=== PATIENT | female | born 1960 | race Caucasian/White ===

== ENCOUNTER 2020-05-06 21:48 | Emergency (ER) | payer BC, SELFPAY ==
--- NOTE | ~2020-05-06 | CT_ITS ---
EXAMINATION: CT BRAIN W/O DATE: 05/06/2020 22:16 INDICATION: Headache after fall. Laceration. TECHNIQUE: Computed tomography (CT) of the head was performed without intravenous contrast. The dose- length product was 529.67 mGy-cm. The mA was adjusted according to patient size. Iterative reconstruc tion technique was employed. COMPARISON: No prior studies for comparison. FINDINGS: Normal brain parenchymal volume for age. Normal bennett-white differentiation. No acute intrac ranial hemorrhage, infarction, mass or mass effect. No ventriculomegaly or midline shift. Midline sagittal images demonstrate a normal corpus callosum, c raniovertebral junction and sella turcica. Basilar cisterns are patent. There is a right posterior pa rietal scalp hematoma. No underlying depressed skull fracture. Paranasal sinuses and mastoids are pneumatized. No depressed skull fractures. IMPRESSION: 1. No acute intracranial abnormality. Reviewed, dictated and finalized at location A.
--- NOTE | ~2020-05-06 | CT_ITS ---
EXAMINATION: CT cervical spine wo con DATE: 05/06/2020 22:17 INDICATION: Neck pain after fall. Alcohol intoxication. TECHNIQUE: Computed tomography (CT) of the cervical spine was performed without intravenous contrast. The dose-length product was 119 mGy-cm. Automated exposure control and iterative reconstruction tech nique were employed. COMPARISON: None FINDINGS: Normal cervical alignment. Vertebral body and disc heights are preserved. No significant sp inal stenosis. Odontoid process within normal limits. Lung apices normal. No paraspinal soft tissue a bnormality. No acute fracture or traumatic malalignment. IMPRESSION: 1. No acute fracture. Reviewed, dictated and finalized at location A. IMPRESSION: 1. No acute fracture.
[2020-05-06 22:19] VITALS: BP 163/105; PULSE 71; RESP 18; TEMP 36.7; O2SAT 100
--- NOTE | 2020-05-06 22:27 | ED.HEATRA ---
HPI - Head Injury General Chief complaint: Head Injury Stated complaint: hit head off of ground Time Seen by Provider: 05/06/20 22:00 Source: patient and family Mode of arrival: ambulatory Limitations: no limitations History of Present Illness HPI Narrative: 59-year-old woman comes in today complaining of a head injury and laceration to her occiput that happened just prior to arrival. Patient states that she has been drinking. She states she lost her balance and fell backwards. She denies loss of consciousness and has had no nausea, vomiting, changes in her vision, difficulty walking or amnesia. She denies history of seizures or prior significant head injuries. Complaint: head injury and head pain Onset (ago): minute(s) (20) Mechanism of Injury: fall Place: outdoors Loss of Consciousness: no Location of injury: occipital Severity: moderate Quality: sharp Radiation: none Other Injuries: none Context: recent alcohol use Related Data Allergies Allergy/AdvReac Type Severity Reaction Status Date / Time No Known Allergies Allergy Unknown Unverified 05/25/06 12:17 NKDA Allergy Mild Uncoded 05/24/06 12:01 Review of Systems Constitutional: Constitutional: Denies chills and Denies fever(s) Eyes: Eyes: Denies change in vision and Denies photophobia ENT: Denies dysphagia, Denies nasal congestion and Denies sore throat Cardiovascular: Cardiovascular: Denies chest pain and Denies radiating jaw, neck or arm pain Respiratory: Respiratory: Denies cough, Denies dyspnea and Denies wheezing Gastrointestinal: Gastrointestinal: Denies abdominal pain, Denies nausea and Denies vomiting Genitourinary: Genitourinary: Denies nocturia and Denies dysuria Musculoskeletal: Musculoskeletal: Denies arthralgias and Denies joint swelling Integumentary/Breasts: Skin/Breast: Denies pruritus, Denies erythema and Denies rash Neurologic: Denies vertigo, Denies dizziness and Denies syncope Hematologic/Lymphatic: Hematologic/Lymphatic: Denies easy bleeding and Denies easy bruising Allergic/Immunologic: Allergic/Immunologic: Denies lip swelling and Denies wheezing PMFSH Surgical History Surgical History History of Hx of tonsillectomy S/P cholecystectomy Family History Family History (Updated 08/31/10 @ 13:40 by DOCTOR UNKNOWN) Other Diabetes mellitus Family history of alcoholism Family history of arthritis Family history of mental disorder Hypertension Social History Social History Smoking status: Current every day smoker Alcohol intake: current Gender identity (if verbalized by the patient): Female Sexual Orientation (if Verbalized by the Patient): Straight or Heterosexual Exam Const: General: healthy appearing, no acute distress and alert Orientation/consciousness: patient oriented x3 Limitations: no limitations HENMT: Head: normal to inspection Ears: external ears normal Face and sinus: normal facial exam Mouth: Yes moist mucous membranes Throat: posterior oropharynx normal and uvula midline Eyes: Conjunctivae: conjunctivae normal Pupils: Equal, round and reactive pupils present EOM: EOMs intact bilaterally Resp: Effort & Inspection: normal respiratory effort and not labored Auscultation: clear to auscultation bilaterally, no rales, no rhonchi and no wheezes Cardio: Rate: regular rate Rhythm: regular rhythm Heart sounds: no murmurs GI: Inspection: non-distended GI Palp: Yes Soft to palpation, No Tenderness to palpation present (GI) and No Guarding due to palpation present (GI) Back/Spine/Pelvis: Other: Denies tenderness palpation of the neck. Skin: General skin exam: normal color Rashes: no rashes Other: Bleeding scalp wound on the occiput. Neuro: General: patient oriented x3, moves all extremities and no focal motor deficits Cranial nerves: Yes CN's II-XII intact bilaterally Speech: normal speech Gait exam (Neuro): No
[2020-05-06 22:35] LABS: Basophils Absolute Auto 0.04 K/mm3 (0.00-0.10); Basophils Percent Auto 0.9 % (0.0-1.0); Eosinophils Percent Auto 2.3 % (1.0-6.0); Hematocrit 31.3 % (35.0-49.0); Immature Granulocyte Absolute 0.05 K/mm3 (0.00-0.00); Immature Granulocyte Percent A 1.2 % (0.0-0.0); Lymphocytes Absolute Auto 1.32 K/mm3 (1.10-4.50); Lymphocytes Percent Auto 30.6 % (18.0-42.0); Mean Corpuscular HGB Conc 31.9 g/dL (32.0-36.0); Mean Corpuscular Hemoglobin 25.4 pg (27.0-31.0); Mean Corpuscular Volume 79.4 fL (78.0-102.0); Monocytes Absolute Auto 0.36 K/mm3 (0.10-0.90); Monocytes Percent Auto 8.3 % (2.0-11.0); Neutrophils Absolute Auto 2.5 K/mm3 (1.7-7.2); Neutrophils Percent Auto 56.7 % (50.0-70.0); Platelet Count Result 278 K/mm3 (150-420); Red Blood Count 3.94 M/mm3 (4.20-5.40); Red Cell Distribution Width 18.2 % (11.6-14.4); White Blood Count 4.3 K/mm3 (4.8-10.8)
[2020-05-06 22:52] LABS: Partial Thromboplastin Time 29.2 SEC (22.3-31.6)
[2020-05-06 22:53] LABS: Alanine Aminotransferase 27 U/L (14-59); Albumin Level 3.7 g/dL (3.4-5.0); Alkaline Phosphatase 72 U/L (46-116); Aspartate Amino Transferase 27 U/L (15-37); Bilirubin,Total 0.3 mg/dL (0.00-1.00); Blood Urea Nitrogen 7 mg/dL (7-18); Calcium 7.8 mg/dL (8.5-10.1); Carbon Dioxide 26 mmol/L (21-32); Chloride 91 mmol/L (98-108); Estimated CRCL calculation 64 ml/min; Estimated Glomerular Filt Rate > 60; Glucose 95 mg/dL (70-99); Osmolality Calculated 258 mOsm/kg (285-295); Sodium 125 mmol/L (136-145); Total Protein 6.9 g/dL (6.4-8.2)
[2020-05-06] MEDS: TETANUS,DIPHTHERIA,AC PERTUSSIS ADULT 0.5 ML (ADACEL) IM (22:53)
[2020-05-06] MEDS: LIDO 1%/EPINEPHRINE 1:100,000 20 ML VIAL (23:23)
[2020-05-06 23:40] VITALS: BP 142/88; PULSE 90; RESP 20; TEMP 36.7; O2SAT 98
== END 2020-05-06 23:53 | disposition home or self-care (01) ==
PROVIDERS: Emergency Provider Emergency Medicine
DX: S01.01XA Laceration without foreign body of scalp, initial encounter (principal); W19.XXXA Unspecified fall, initial encounter
CPT/HCPCS: 12001; 36415; 70450; 72125; 80053; 85025; 85610; 85730; 90471; 90715; 99282; 99284

== ENCOUNTER 2020-09-29 09:39 | Outpatient (CLI) | payer BC, SELFPAY ==
[2020-09-29 10:19] LABS: SARS-CoV-2 Ag Positive (Negative)
== END 2020-09-29 09:40 | disposition home or self-care (01) ==
LOC: CHSLAB 09:42
PROVIDERS: PCP Internal Medicine; Visit Provider Internal Medicine
DX: U07.1 COVID-19 (principal)
CPT/HCPCS: 87426

== ENCOUNTER 2024-06-22 08:38 | Outpatient (CLI) | payer BC, SELFPAY ==
--- NOTE | ~2024-06-22 | XR_ITS ---
EXAMINATION: XR shoulder RT min 2V DATE: 06/22/2024 09:18 INDICATION: Polyarthritis with right shoulder pain TECHNIQUE: AP internally and externally rotated, AP oblique externally rotated and transscapular Y vi ews of the right shoulder were obtained. COMPARISON: None FINDINGS: Normal alignment. No fracture. Mild right glenohumeral and acromioclavicular osteoarthritis. Soft ti ssues are unremarkable. Visualized portion of the right lung are clear. IMPRESSION: Mild right glenohumeral and acromioclavicular osteoarthritis. Reviewed, dictated and finalized at location B.
--- NOTE | ~2024-06-22 | XR_ITS ---
EXAMINATION: XR hand LT min 3V, XR wrist RT min 3V, XR wrist LT min 3V, XR hand RT min 3V DATE: 06/22/2024 09:17 INDICATION: Bilateral hand and wrist pain. TECHNIQUE: 1. Posteroanterior, oblique, and lateral views of the left wrist were obtained. 2. Dorsal palmar, oblique and lateral views of the left hand were obtained. 3. Posteroanterior, oblique, and lateral views of the right wrist were obtained. 4. Dorsal palmar, oblique and lateral views of the right hand were obtained. COMPARISON: None. FINDINGS: Left hand and wrist: 1-2 mm ulnar positive variance with cystic change at the ulnar side of the lunate suggesting ulnocarp al impaction. Alignment of the left hand and wrist is otherwise normal. No fracture identified. Poly articular osteoarthritis, moderate severity at the first and third metacarpophalangeal and first inte rphalangeal joints and mild at the wrist, triscaphe, first carpometacarpal and many of the remaining metacarpophalangeal and interphalangeal joints. Mild likely degenerative subarticular cystlike change at the head of the first metacarpal. No erosions to suggest inflammatory arthritis. No focal soft ti ssue swelling. Right hand and wrist: 2 mm ulnar positive variance with similar cystic change at the ulnar side of the lunate consistent wi th ulnocarpal impaction. Alignment of the right hand and wrist is otherwise normal. No fracture. Rela tively symmetric pattern of polyarticular osteoarthritis at the right hand, moderate severity at the first and third metacarpophalangeal and first interphalangeal joints as well as at the second, third and fifth distal interphalangeal joints. Mild osteoarthritis at the wrist, triscaphe, first carpometa carpal and menisci and remaining metacarpophalangeal and interphalangeal joints. Similar subarticular likely degenerative cystic change at the head of the first metacarpal. No erosions to suggest inflam matory arthritis. IMPRESSION: 1. Symmetric mild ulnar positive variance with cystic change at the ulnar aspect of the lunate on bot h the left and right consistent with ulnocarpal impaction. 2. Relative symmetric pattern of mild to moderate polyarticular osteoarthritis. Reviewed, dictated and finalized at location B. IMPRESSION: 1. Symmetric mild ulnar positive variance with cystic change at the ulnar aspec t of the lunate on both the left and right consistent with ulnocarpal impaction . 2. Relative symmetric pattern of mild to moderate polyarticular osteoarthritis. IMPRESSION: 1. Symmetric mild ulnar positive variance with cystic change at the ulnar aspec t of the lunate on both the left and right consistent with ulnocarpal impaction . 2. Relative symmetric pattern of mild to moderate polyarticular osteoarthritis. IMPRESSION: 1. Symmetric mild ulnar positive variance with cystic change at the ulnar aspec t of the lunate on both the left and right consistent with ulnocarpal impaction . 2. Relative symmetric pattern of mild to moderate polyarticular osteoarthritis.
--- NOTE | ~2024-06-22 | XR_ITS ---
EXAMINATION: XR knee RT 3V DATE: 06/22/2024 09:18 INDICATION: Right knee pain. Polyarthritis. TECHNIQUE: AP, lateral and sunrise views of the right knee were obtained COMPARISON: None. FINDINGS: Diffuse osteopenia. Alignment is normal. No fracture. Mild joint space narrowing in the medial and p atellofemoral compartments. There are tiny marginal ossified the medial lateral compartment. Moderate marginal osteophytes at the patellofemoral compartment with subarticular cystic changes and small ce ntral subchondral osteophytes along the lateral trochlea. Small right knee joint effusion. Soft tissu es are unremarkable. IMPRESSION: 1. Mild patellofemoral compartment predominant tricompartmental osteoarthritis at the right knee with subchondral changes suggesting high-grade chondromalacia along the lateral trochlea. Reviewed, dictated and finalized at location B.
--- NOTE | ~2024-06-22 | XR_ITS ---
Left Knee Technique: AP, lateral, and sunrise views were obtained. Clinical History: Arthritis Findings: No fracture or dislocation is seen. Osseous alignment is anatomic. There is mild to moderat e degenerative spine, worst at the medial joint line.. Soft tissues are unremarkable. No joint effusi on is seen. Impression: Degenerative spurring, as above. Reviewed, dictated and finalized at location M. Impression: Degenerative spurring, as above.
== END 2024-06-22 08:39 | disposition home or self-care (01) ==
LOC: CHSIMG 08:43
PROVIDERS: PCP Internal Medicine; Visit Provider Internal Medicine
DX: M13.0 Polyarthritis, unspecified (principal); M94.262 Chondromalacia, left knee; M94.261 Chondromalacia, right knee
CPT/HCPCS: 73030; 73110; 73130; 73562

== ENCOUNTER 2024-06-25 12:52 | Outpatient (CLI) | payer BC, SELFPAY ==
--- NOTE | ~2024-06-25 | XR_ITS ---
XR chest 2V Ordering provider: Lencho Paige MD History: 63 years Female with . Anemia hx of smoking . Comparison: None. FINDINGS: MEDIASTINUM: The cardiac silhouette is not enlarged. LUNGS: No infiltrates, effusions or pneumothorax. OTHER: No free air under the diaphragm. IMPRESSION: No acute cardiopulmonary pathology. Reviewed, dictated and finalized at location A.
[2024-06-25 13:34] LABS: Basophils Absolute Auto 0.04 K/mm3 (0.00-0.10); Basophils Percent Auto 0.8 % (0.0-1.0); Eosinophils Absolute Auto 0.04 K/mm3 (0.02-0.50); Eosinophils Percent Auto 0.8 % (1.0-6.0); Hematocrit 24.3 % (35.0-49.0); Immature Granulocyte Absolute 0.01 K/mm3 (0.00-0.00); Immature Granulocyte Percent A 0.2 % (0.0-0.0); Immature Reticulocyte Fraction 14.2 % (2.0-16.52); Lymphocytes Absolute Auto 0.92 K/mm3 (1.10-4.50); Lymphocytes Percent Auto 18.7 % (18.0-42.0); Mean Corpuscular HGB Conc 28.4 g/dL (32-36); Mean Corpuscular Hemoglobin 19.5 pg (27.0-31.0); Mean Corpuscular Volume 68.6 fL (78.0-102.0); Mean Platelet Volume 8.2 fl (9.2-11.8); Monocytes Absolute Auto 0.56 K/mm3 (0.10-0.90); Monocytes Percent Auto 11.4 % (2.0-11.0); Neutrophils Absolute Auto 3.34 K/mm3 (1.70-7.20); Neutrophils Percent Auto 68.1 % (50.0-70.0); Platelet Count Result 253 K/mm3 (150-420); Red Blood Count 3.54 M/mm3 (4.20-5.40); Red Cell Distribution Width 21.2 % (11.6-14.4); Reticulocyte Hemoglobin Conten 20.4 pg (28.0-35.0); Reticulocyte Percent 1.35 % (0.50-1.50); Reticulocytes Absolute 0.05 M/mm3 (0.02-0.10); White Blood Count 4.9 K/mm3 (4.8-10.8)
[2024-06-25 13:45] LABS: Hemoglobin 6.9 g/dL (12.0-15.0)
[2024-06-26 14:01] LABS: Ferritin 4 ng/mL (8-252); Iron 8 ug/dL (50-170); Percent Iron Saturation 2 % (12-57)
== END 2024-06-25 12:53 | disposition home or self-care (01) ==
PROVIDERS: PCP Internal Medicine; Visit Provider Internal Medicine
DX: D64.9 Anemia, unspecified (principal); Z87.891 Personal history of nicotine dependence
CPT/HCPCS: 36415; 71046; 82728; 83540; 83550; 85025; 85046

== ENCOUNTER 2024-06-28 11:09 | Outpatient (CLI) | payer BC, SELFPAY ==
[2024-06-28 12:54] LABS: Calcium 8.3 mg/dL (8.5-10.1); Folic Acid 18.7 ng/mL (8.6->20); Magnesium 1.9 mg/dL (1.8-2.4); Phosphorus 4.7 mg/dL (2.6-4.7); Vitamin B12 240 pg/mL (193-986)
[2024-06-29 17:53] LABS: Parathyroid Intact 88 pg/mL (16-77)
[2024-06-30 05:33] LABS: Vitamin D 25 Hydroxy 10 ng/mL (30-100)
[2024-07-01 11:39] LABS: Vitamin B1 9 nmol/L (8-30)
[2024-07-02 11:29] LABS: Vitamin A 29 mcg/dL (38-98)
[2024-07-03 09:59] LABS: Methylmalonic Acid 192 nmol/L (69-390)
[2024-07-03 12:43] LABS: Zinc 63 mcg/dL (60-130)
== END 2024-06-28 11:10 | disposition home or self-care (01) ==
LOC: CHSLAB 11:13
PROVIDERS: PCP Internal Medicine; Visit Provider Nurse Practitioner Family
DX: K95.89 Other complications of other bariatric procedure (principal); D50.8 Other iron deficiency anemias; Z71.3 Dietary counseling and surveillance; R79.89 Other specified abnormal findings of blood chemistry
CPT/HCPCS: 36415; 82306; 82310; 82525; 82607; 82746; 83735; 83921; 83970; 84100; 84425; 84590; 84630

== ENCOUNTER 2024-07-09 08:22 | Outpatient (CLI) | payer BC, SELFPAY ==
[2024-07-09 08:50] VITALS: BP 162/88; PULSE 77; RESP 16; TEMP 36.9; O2SAT 99; BMI 22.1
--- NOTE | 2024-07-09 08:50 | PC.NURSE ---
Patient here for venofer infusion. Patient tolerated IV start well. Sitting up in chair resting, provided with call light.
[2024-07-09] MEDS: IRON SUCROSE COMPLEX 200 MG, IRON SUCROSE COMPLEX 100 MG in SODIUM CHLORIDE 0.9% IV 250 ML 250 MG IVPB (09:01)
--- NOTE | 2024-07-09 10:10 | PC.NURSE ---
Patient tolerated infusion well. IV sited removed, tip intact. Dressing applied to site. Patient discharging back home. Next appointment for venofer set up for 07-12-24 at 0830. Patient denies any questions at discharge, provided with information about venofer with discharge instructions.
== END 2024-07-09 08:23 | disposition home or self-care (01) ==
PROVIDERS: PCP Internal Medicine; Visit Provider Nurse Practitioner Family
DX: D50.8 Other iron deficiency anemias (principal)
CPT/HCPCS: 96365; J1756; J7050

== ENCOUNTER 2024-07-12 08:22 | Outpatient (CLI) | payer BC, SELFPAY ==
[2024-07-12 09:30] VITALS: BMI 20.6
[2024-07-12 09:32] VITALS: BP 142/74; PULSE 80; RESP 18; TEMP 36.5; O2SAT 98
[2024-07-12] MEDS: IRON SUCROSE COMPLEX 200 MG, IRON SUCROSE COMPLEX 100 MG in SODIUM CHLORIDE 0.9% IV 250 ML 125 MG IVPB (09:36)
--- NOTE | 2024-07-12 09:54 | PC.NURSE ---
pharm claims iron can be ran over a hour. patient requests it to run over a hour. tolerated this earilier in week. will cont to monitor.
== END 2024-07-12 11:55 | disposition home or self-care (01) ==
PROVIDERS: PCP Internal Medicine; Visit Provider Nurse Practitioner Family
DX: D50.8 Other iron deficiency anemias (principal)
CPT/HCPCS: 96365; J1756; J7050

== ENCOUNTER 2024-07-25 02:18 | Day surgery (SDC) | payer BC, SELFPAY ==
[2024-07-09 12:56] VITALS: BMI 22.4
[2024-07-25 13:45] VITALS: BP 175/79; PULSE 85; RESP 18; TEMP 36.4; O2SAT 100; BMI 20.9
[2024-07-25] MEDS: LACTATED RINGERS 1,000 ML 150 ML IV CONT (14:02)
--- NOTE | 2024-07-25 14:09 | WPDANESEPPF ---
Anes - Initial Pre Proc Eval Procedure: Operation Date: 07/25/24 15:00 Proposed Procedures p Esophagogastroduodenoscopy & Colonoscopy - Schuyler Stokes MD Date/Time: 07/25/24 14:09 Surgeon: Schuyler Stokes MD Pre Op Diagnosis: anemia Patient Data Age: 63 Gender: F Height: 1.6 m Weight: 53.6 kg Last Vital Signs Temp 97.6 F 07/25/24 13:45 Pulse 85 07/25/24 13:45 Resp 18 07/25/24 13:45 BP 175/79 H 07/25/24 13:45 Pulse Ox 100 07/25/24 13:45 O2 Del Method Room Air 07/25/24 13:45 Allergies Allergy/AdvReac Type Severity Reaction Status Date / Time No Known Allergies Allergy Unknown Verified 07/25/24 13:52 Home Medications Medication Instructions Recorded Confirmed Type celecoxib 100 mg capsule 100 mg PO BID PRN pain 07/09/24 07/25/24 History cholecalciferol (vitamin D3) 1,250 50,000 unit PO WEEKLY 07/09/24 07/25/24 History mcg (50,000 unit) tablet mecobalamin (vitamin B12) 5,000 5,000 mcg PO DAILY 07/09/24 07/25/24 History mcg chewable tablet multivitamin with minerals 1 tablet PO DAILY 07/09/24 07/25/24 History pediatric multivit no.17-ferrous 1 tablet PO DAILY 07/09/24 07/25/24 History fumarate 15 mg iron chewable tablet vitamin D3-vitamin K2 1 tab-cap PO DAILY 07/09/24 07/25/24 History Patient hx anesthesia problems: none Family hx anesthesia problems: none Results Review: All pre-operative results and documents have been reviewed as part of the pre-operative evaluation. [facility] Past Medical History Medical History (Updated 06/20/24 @ 15:50 by Devon Vanessa MD) Osteoarthritis (arthritis due to wear and tear of joints) Surgical History Surgical History History of Hx of tonsillectomy S/P cholecystectomy Family History Family History (Updated 08/31/10 @ 13:40 by DOCTOR UNKNOWN) Other Diabetes mellitus Family history of alcoholism Family history of arthritis Family history of mental disorder Hypertension Social History Social History Smoking packs per day: 1 Smoking cigarettes per day: 20.0 Years smoked: 10 Smoking pack-years: 10.00 Smoking status: Current every day smoker Tobacco type: cigarettes Alcohol intake: never Substance use: never Substance use type: does not use Living arrangements: with family Gender identity (if verbalized by the patient): Female Sexual Orientation (if Verbalized by the Patient): Straight or Heterosexual Spiritual care concerns: No Anes - Eval Final PreProcedure Day of Procedure 07/25/24 14:09 Patient weight: normal Heart: regular rate and rhythm Lungs: clear to auscultation Airway: Mallampati scale class II Neurological: alert and oriented Last oral intake: >/= 8 hours ASA classification: II Emergent: no Anesthetic plan: proceed Anesthesia type and monitoring: general and standard monitoring Results Review: All pre-operative results and documents have been reviewed as part of the pre-operative evaluation. Informed Consent: The patient's anesthetic plan and its attendant risks and benefits were discussed with the patient/family/POA. Questions were solicited and answers provided to the satisfaction of the patient/family/POA.
--- NOTE | 2024-07-25 14:16 | PM.HPGS ---
History of Present Illness History of Present Illness Consent: Risks, benefits, and alternatives have been discussed and questions answered. Patient agrees to proceed with procedure. Chief complaint: anemia Narrative: Magdalena Banegas is a 63 year old female with anemia but denies overt gib, never had egd, last colonoscopy years ago Review of Systems Review of Systems: All systems reviewed & are unremarkable except as noted in HPI and below PMFSH Past Medical History Medical History (Updated 07/25/24 @ 14:17 by Schuyler Stokes MD) Anemia Osteoarthritis (arthritis due to wear and tear of joints) Surgical History Surgical History History of Hx of tonsillectomy S/P cholecystectomy Family History Family History (Updated 08/31/10 @ 13:40 by DOCTOR UNKNOWN) Other Diabetes mellitus Family history of alcoholism Family history of arthritis Family history of mental disorder Hypertension Social History Social History Smoking packs per day: 1 Smoking cigarettes per day: 20.0 Years smoked: 10 Smoking pack-years: 10.00 Smoking status: Current every day smoker Tobacco type: cigarettes Alcohol intake: never Substance use: never Substance use type: does not use Living arrangements: with family Gender identity (if verbalized by the patient): Female Sexual Orientation (if Verbalized by the Patient): Straight or Heterosexual Spiritual care concerns: No Meds Home Medications and Allergies Home Medications Medication Instructions Recorded Confirmed Type celecoxib 100 mg capsule 100 mg PO BID PRN pain 07/09/24 07/25/24 History cholecalciferol (vitamin D3) 1,250 50,000 unit PO WEEKLY 07/09/24 07/25/24 History mcg (50,000 unit) tablet mecobalamin (vitamin B12) 5,000 5,000 mcg PO DAILY 07/09/24 07/25/24 History mcg chewable tablet multivitamin with minerals 1 tablet PO DAILY 07/09/24 07/25/24 History pediatric multivit no.17-ferrous 1 tablet PO DAILY 07/09/24 07/25/24 History fumarate 15 mg iron chewable tablet vitamin D3-vitamin K2 1 tab-cap PO DAILY 07/09/24 07/25/24 History Allergies Allergy/AdvReac Type Severity Reaction Status Date / Time No Known Allergies Allergy Unknown Verified 07/25/24 13:52 Vital Signs Vital Signs - 24 hr 10/16/24 13:45 Temperature 97.6 F Pulse Rate 85 Respiratory Rate 18 Blood Pressure 175/79 H Pulse Oximetry 100 Oxygen Delivery Room Air Exam Const: General: comfortable and no acute distress HENMT: Face/Nose/Sinus: Normal nares present Eyes: General: appearance normal, both eyes and all related structures Neck: Neck: no JVD Resp: Auscultation: clear to auscultation bilaterally Cardio: Rate: regular rate Rhythm: regular rhythm GI: Inspection: non-distended GI Palp: Yes Soft to palpation Skin: General skin exam: normal color Neuro: General: gait normal Speech: normal speech Extrem: General: normal to inspection Psych: Mental Status: mental status grossly normal Assessment and Plan Assessment and plan (1) Anemia: Code(s): D64.9 - Anemia, unspecified Status: Acute Assessment and Plan: egd and colonoscopy
--- NOTE | 2024-07-25 14:44 | SUR.OPER ---
EGD START 1424, END 1426 COLONOSCOPY START 1430, END 1444
[2024-07-25 14:46] VITALS: BP 146/78; PULSE 71; RESP 12; O2SAT 99
[2024-07-25 14:56] VITALS: BP 187/80; PULSE 77; RESP 17; O2SAT 99
[2024-07-25 15:06] VITALS: BP 194/97; PULSE 77; RESP 14; O2SAT 99
--- NOTE | 2024-07-25 15:22 | SUR.PHASEII ---
Pt blood pressure 194/97 in recovery. Pt states she has not on any antihypertensives and states she has not taken them since her gastric surgery. Dr. Cherry anesthesiologist notified of blood pressure readings and no new orders received states ok to discharge pt. I encouraged pt to check blood pressure daily at home and to report readings to primary care physician.
== END 2024-07-25 15:22 | disposition home or self-care (01) ==
PROVIDERS: PCP Internal Medicine; Referring Provider Nurse Practitioner Family; Visit Provider Internal Medicine Gastroenterology
PROC: 0DJ08ZZ Inspection of Upper Intestinal Tract, Via Natural or Artificial Opening Endoscopic (ICD-10-PCS; CPT 43235; principal; 2024-07-25 15:00)
DX: Z12.11 Encounter for screening for malignant neoplasm of colon (principal); K64.8 Other hemorrhoids; K57.30 Diverticulosis of large intestine without perforation or abscess without bleeding; D64.9 Anemia, unspecified; F17.210 Nicotine dependence, cigarettes, uncomplicated; Z98.890 Other specified postprocedural states; Z90.49 Acquired absence of other specified parts of digestive tract; Z98.84 Bariatric surgery status
CPT/HCPCS: 43235; 45378; J2003; J2704; J7120

== ENCOUNTER 2024-07-26 07:41 | Outpatient (CLI) | payer BC, SELFPAY ==
[2024-07-26 07:57] LABS: Hematocrit 32.9 % (35.0-49.0); Hemoglobin 9.7 g/dL (12.0-15.0); Mean Corpuscular HGB Conc 29.5 g/dL (32-36); Mean Corpuscular Hemoglobin 23.5 pg (27.0-31.0); Mean Corpuscular Volume 79.9 fL (78.0-102.0); Mean Platelet Volume 7.7 fl (9.2-11.8); Platelet Count Result 249 K/mm3 (150-420); Red Blood Count 4.12 M/mm3 (4.20-5.40); Red Cell Distribution Width 29.8 % (11.6-14.4); White Blood Count 3.9 K/mm3 (4.8-10.8)
[2024-07-26 08:47] LABS: Band Neutrophils Percent 0 % (0-6); Basophils Absolute Manual 0.03 K/mm3 (0-0.1); Basophils Percent Manual 1 % (0-1); Eosinophils Absolute Manual 0.03 K/mm3 (0.02-0.50); Eosinophils Percent Manual 1 % (1-6); Lymphocytes Absolute Manual 0.62 K/mm3 (1.1-4.5); Lymphocytes Percent Manual 16 % (18-44); Monocytes Absolute Manual 0.35 K/mm3 (0.1-0.90); Monocytes Percent Manual 9 % (3-9); Neutrophils Absolute Manual 2.84 K/mm3 (1.7-7.2); Neutrophils Percent Manual 73 % (46-73); Platelet Estimate Adequate (Adequate); Total Cells Counted 100
[2024-07-26 09:08] LABS: Ferritin 75 ng/mL (8-252); Iron 80 ug/dL (50-170); Percent Iron Saturation 22 % (12-57)
== END 2024-07-26 07:42 | disposition home or self-care (01) ==
LOC: CHSLAB 07:45
PROVIDERS: PCP Internal Medicine; Visit Provider Nurse Practitioner Family
DX: D50.9 Iron deficiency anemia, unspecified (principal)
CPT/HCPCS: 36415; 82728; 83540; 83550; 85025

== ENCOUNTER 2024-08-16 12:54 | Outpatient (CLI) | payer BC, SELFPAY ==
--- NOTE | 2024-08-16 12:59 | ECHO_ITS ---
Patient Info Name: Magdalena Banegas Age: 63 years : 1960 Gender: Female Ht: 64 in Wt: 125 lbs BSA: 1.60 m2 HR: 76 bpm BP: 170 / 70 mmHg Heart Rhythm: Sinus Rhythm Technical Quality: Good Exam Date: 08/16/2024 2:09 PM Exam Location: Echo Lab Patient Status: Outpatient Admit Date: 08/16/2024 Staff Ordering Physician: Lencho Paige MD Central Sterilization Technician: Maria C Ojeda RDCS Attending Provider: Lencho Paige MD Exam Type: CA echo doppler color flow Study Info Indications - HTN, IRON DEFICIENCY Complete two-dimensional, color flow and Doppler transthoracic echocardiogram is performed. Summary 1. Complete two-dimensional, color flow and Doppler transthoracic echocardiogram is performed. 2. Left ventricular chamber dimension is normal. 3. Left ventricular systolic function is normal, estimated at 60-65%. 4. The left ventricular diastolic function is grade I diastolic dysfunction. 5. E/e' 8 is minimally elevated. 6. Left atrial chamber dimension is mildly enlarged. 7. There is trace aortic valve regurgitation. 8. The mitral valve has moderately calcified annulus. 9. No pulmonary hypertension, estimated pulmonary arterial systolic pressure is 13 mmHg. Left Ventricle E/e' 8 is minimally elevated. Left ventricular chamber dimension is normal. Left ventricular systolic function is normal, estimated at 60-65%. The left ventricular diastolic function is grade I diastolic dysfunction. Right Ventricle Right ventricular systolic function is normal and with normal TAPSE 2.4 cm. Right ventricular chamber dimension is normal. Left Atria Left atrial chamber dimension is mildly enlarged. Right Atria Right atrial chamber dimension is normal. Aortic Valve The aortic valve is trileaflet. There is no aortic valve stenosis. There is trace aortic valve regurgitation. Pulmonic Valve There is no pulmonic regurgitation. Mitral Valve The mitral valve has moderately calcified annulus. There is no mitral valve stenosis. There is no mitral valve regurgitation. Tricuspid Valve There is no tricuspid valve regurgitation. No pulmonary hypertension, estimated pulmonary arterial systolic pressure is 13 mmHg. Pericardium/Pleural There is no pericardial effusion. Inferior Vena Cava Normal inferior vena cava with >50% collapse upon inspiration consistent with normal right atrial pressure, 5 mmHg. Aorta The aortic root size at the sinus of Valsalva is normal. Left Ventricular Outflow Tract Name Value Normal LVOT 2D LVOT Diameter 1.7 cm LVOT Doppler LVOT Peak Velocity 100 cm/s LVOT Peak Gradient 4 mmHg LVOT Mean Gradient 2 mmHg LVOT VTI 22 cm LVOT VTI/AV VTI Ratio 0.8 LVOT Stroke Volume 52 ml Mitral Valve Name Value Normal MV Doppler MV Decel Campbell 269 cm/s2 MV PHT 64 ms MV Area (PHT) 3.4 cm2 4.0-5.0 MV Diastolic Function MV E Peak Velocity 59 cm/s MV A Peak Velocity 117 cm/s MV E/A 0.5 MV Decel Time 221 ms Tricuspid Valve Name Value Normal TV Regurgitation Doppler TR Peak Velocity 146 cm/s TR Peak Gradient 8 mmHg Estimated PAP/RSVP RA Pressure 5 mmHg <=5 PA Systolic Pressure 13 mmHg <36 RV Systolic Pressure 13 mmHg <36 Aortic Valve Name Value Normal AV Doppler AV Peak Velocity 139 cm/s AV Peak Gradient 8 mmHg AV Mean Gradient 5 mmHg AV VTI 29 cm AV Area (Cont Eq VTI) 1.8 cm2 >=3.0 AV Area (Cont Eq Uday) 1.7 cm2 AV V1/V2 Ratio 0.72 AV Regurgitation 2D LVOT Area 2.3 cm2 Ventricles Name Value Normal LV Dimensions 2D/MM IVS Diastolic Thickness (2D) 1.0 cm 0.6-1.0 LVID Diastole (2D) 4.8 cm 3.8-5.2 LVIW Diastolic Thickness (2D) 1.0 cm 0.6-0.9 LVID Systole (2D) 3.1 cm 2.2-3.5 LVOT Diameter 1.7 cm LV Mass (2D Cubed) 164.90 g 67.00-162.00 LV Mass Index (2D Cubed) 103 g/m2 43-95 Relative Wall Thickness (2D) 0.42 LV Fractional Shortening/Ejection Fraction 2D/MM LV Fractional Shortening (2D) 35 % 27-45 LV EF (2D Teicholz) 64 % 54-74 LV Diastolic Volume (4C MOD) 88 ml LV EF (4C MOD) 64 % LV Diastolic Volume (2C MOD) 126 ml LV EF (2C MOD) 65 % LV Diastolic Volume (BP MOD) 109 ml 46-106 LV Diastolic Volume Index (BP MOD) 68 ml/m2 29-61 LV Systolic Volume (BP MOD) 41 ml 14-42 LV Systolic Volume Index (BP MOD) 25 ml/m2 8-24 LV EF (BP MOD) 62 % 54-74 LV Diastolic Length (4C) 8.2 cm LV Systolic Length (4C) 6.0 cm LV Stroke Volume (4C MOD) 56 ml Atria Name Value Normal LA Dimensions LA Volume (4C A-L) 49 ml LA Volume (BP A-L) 63 ml RA Dimensions RA Area (4C) 12.7 cm2 <=18.0 Report Signatures
== END 2024-08-16 12:55 | disposition home or self-care (01) ==
LOC: CHSIMG 12:55
PROVIDERS: PCP Internal Medicine; Visit Provider Internal Medicine
DX: I10 Essential (primary) hypertension (principal); D50.9 Iron deficiency anemia, unspecified; I51.7 Cardiomegaly
CPT/HCPCS: 93306

== ENCOUNTER 2024-08-27 08:08 | Outpatient (CLI) | payer BC, SELFPAY ==
[2024-08-27 08:21] LABS: Hemoglobin 11.8 g/dL (12.0-15.0); Mean Corpuscular HGB Conc 31.9 g/dL (32-36); Mean Corpuscular Hemoglobin 26.6 pg (27.0-31.0); Mean Corpuscular Volume 83.3 fL (78.0-102.0); Mean Platelet Volume 8.3 fl (9.2-11.8); Platelet Count Result 177 K/mm3 (150-420); Red Blood Count 4.44 M/mm3 (4.20-5.40); White Blood Count 3.3 K/mm3 (4.8-10.8)
[2024-08-27 08:51] LABS: Band Neutrophils Percent 0 % (0-6); Neutrophils Absolute Manual 1.98 K/mm3 (1.7-7.2); Neutrophils Percent Manual 60 % (46-73); Total Cells Counted 100
[2024-08-27 08:52] LABS: Eosinophils Absolute Manual 0.03 K/mm3 (0.02-0.50); Eosinophils Percent Manual 1 % (1-6); Lymphocytes Absolute Manual 1.05 K/mm3 (1.1-4.5); Lymphocytes Percent Manual 32 % (18-44); Monocytes Absolute Manual 0.23 K/mm3 (0.1-0.90); Monocytes Percent Manual 7 % (3-9); Platelet Estimate Adequate (Adequate)
[2024-08-27 09:06] LABS: Alanine Aminotransferase 26 U/L (14-59); Albumin Level 3.7 g/dL (3.4-5.0); Alkaline Phosphatase 107 U/L (46-116); Anion Gap 9 mmol/L (4-12); Aspartate Amino Transferase 20 U/L (15-37); Bilirubin,Total 0.4 mg/dL (0.00-1.00); Blood Urea Nitrogen 9 mg/dL (7-18); Calcium 8.7 mg/dL (8.5-10.1); Carbon Dioxide 29 mmol/L (21-32); Chloride 99 mmol/L (98-108); Estimated Glomerular Filt Rate > 60; Ferritin 20 ng/mL (8-252); Glucose 93 mg/dL (70-99); Magnesium 1.9 mg/dL (1.8-2.4); Osmolality Calculated 282 mOsm/kg (285-295); Phosphorus 5.1 mg/dL (2.6-4.7); Potassium 4.1 mmol/L (3.5-5.1); Sodium 137 mmol/L (136-145); Total Protein 6.6 g/dL (6.4-8.2)
[2024-08-28 13:13] LABS: Parathyroid Intact 54 pg/mL (16-77)
[2024-08-29 04:38] LABS: Vitamin D 25 Hydroxy 71 ng/mL (30-100)
[2024-08-30 11:29] LABS: Vitamin B1 17 nmol/L (8-30)
== END 2024-08-27 08:09 | disposition home or self-care (01) ==
LOC: CHSLAB 08:10
PROVIDERS: PCP Internal Medicine; Visit Provider Internal Medicine
DX: D64.9 Anemia, unspecified (principal); E56.8 Deficiency of other vitamins; Z98.84 Bariatric surgery status
CPT/HCPCS: 36415; 80053; 82306; 82652; 82728; 83735; 83970; 84100; 84425; 84590; 85025

== ENCOUNTER 2024-10-09 09:33 | Outpatient (CLI) | payer BC, SELFPAY ==
[2024-10-09 10:24] LABS: Alanine Aminotransferase 32 U/L (14-59); Albumin Level 3.7 g/dL (3.4-5.0); Alkaline Phosphatase 93 U/L (46-116); Anion Gap 10 mmol/L (4-12); Aspartate Amino Transferase 31 U/L (15-37); Bilirubin,Total 0.3 mg/dL (0.00-1.00); Blood Urea Nitrogen 5 mg/dL (7-18); Carbon Dioxide 30 mmol/L (21-32); Chloride 96 mmol/L (98-108); Estimated Glomerular Filt Rate > 60; Glucose 84 mg/dL (70-99); Magnesium 1.9 mg/dL (1.8-2.4); Osmolality Calculated 278 mOsm/kg (285-295); Potassium 4.3 mmol/L (3.5-5.1); Sodium 136 mmol/L (136-145); Total Protein 6.7 g/dL (6.4-8.2)
== END 2024-10-09 09:34 | disposition home or self-care (01) ==
LOC: CHSLAB 09:36
PROVIDERS: PCP Internal Medicine; Visit Provider Internal Medicine
DX: I10 Essential (primary) hypertension (principal)
CPT/HCPCS: 36415; 80053; 83735

== ENCOUNTER 2024-10-30 13:12 | Outpatient (CLI) | payer BC, SELFPAY ==
--- NOTE | ~2024-10-30 | MM_ITS ---
EXAMINATION: MM screening trena BI w nicho HISTORY: Screening TECHNIQUE: Craniocaudal and mediolateral oblique 3-D tomosynthesis images were obtained and synthetic 2-D images were generated. CAD analysis was submitted and interpreted. COMPARISON: Comparison to multiple prior studies sequentially, with oldest reviewed study dated 12/03. BREAST PARENCHYMAL COMPOSITION: Dense: The breasts are heterogeneously dense, which may obscure small masses FINDINGS: There is no evidence of suspicious mass, calcification, or architectural distortion to sugg est malignancy in either breast. There has been no suspicious interval change. IMPRESSION: 1. No mammographic evidence of malignancy. 2. Recommend routine screening mammography in one year. BI-RADS Category 1: Negative Reviewed, dictated and finalized at location A. E SUPERINTENDENT
== END 2024-10-30 13:13 | disposition home or self-care (01) ==
LOC: CHSIMG 13:12
PROVIDERS: PCP Internal Medicine; Visit Provider Internal Medicine
DX: Z12.31 Encounter for screening mammogram for malignant neoplasm of breast (principal)
CPT/HCPCS: 77063; 77067

== ENCOUNTER 2025-01-10 12:42 | Outpatient (CLI) | payer BC, SELFPAY ==
--- OUTSIDE RECORDS SUMMARY | 2025-01-10 12:55 | XMS_ITS | Clinical Summary ---
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 Role Phone Unavailable Primary Care Provider Unavailabl e Social History Tobacco Use Types Packs/Day Years Used Date Smoking Tobacco: Never Comments Unknown Sex and Gender Information Value Date Recorded Sex Assigned at Not on file Legal Sex Female 7:22 PM CDT Gender Identity Not on file Sexual Orientation Not on file Last Filed Vital Signs Vital Sign Reading Time Taken Comments Blood Pressure 122/76 02/08/2014 10:15 AM CDT Pulse 64 02/08/2014 10:15 AM CDT Temperature - - Respiratory Rate 16 02/19/2011 11:50 AM CDT Oxygen Saturation - - Inhaled Oxygen Concentration - - Weight 58.1 kg (128 lb) 02/08/2014 10:15 AM CDT Height 160 cm (5' 3 ) 02/19/2011 11:50 AM CDT Body Mass Index 22.67 02/19/2011 11:50 AM CDT Plan of Treatment Health Maintenance Due Date Last Done Comments Cervical Cancer Screening Pa p Smear (Age 30 to 64) Every 3 Years 1960 Colorectal Cancer Screening Colonoscopy (10 Years) 1960 Annual Physical 1963 Hepatitis C 1978 Cervical Cancer Screening Pa p with HPV Testing (Age 30 to 64) Every 5 Years 1990 Cervical Cancer Screening wi th HPV 1990 Mammogram Screening 2000 Zoster Vaccines (2 of 3) 03/21/2013 01/24/2013 DTaP, Tdap and Td Vaccines ( 2 - Td or Tdap) 08/31/2020 08/31/2010 COVID-19 Vaccine (2023-2 5 season) 2024 Influenza Adult (#1) 2024 07/17/2014, 07/21/2013, 08/10/2011 RSV Immunization or 60+ Years (1 - 1-dose 75+ series) 2035 Meningococcal B Vaccine Aged Out No l onger eligible based on patient's age to complete this topic Meningococcal Vaccine Aged Out No meagan delisa eligible based on patient's age to complete this topic Pneumococcal Vaccine: Pediatrics (0 to 5 Years) and At-Risk Patients (6 to 64 Years) Aged Out No longer eligible b ased on patient's age to complete this topic RSV Immunizations Under 20 Months Aged Out No longer eligible b ased on patient's age to complete this topic
[2025-01-10 13:04] LABS: Hematocrit 39.5 % (35.0-49.0); Hemoglobin 13.3 g/dL (12.0-15.0); Mean Corpuscular HGB Conc 33.7 g/dL (32-36); Mean Corpuscular Hemoglobin 31.8 pg (27.0-31.0); Mean Corpuscular Volume 94.5 fL (78.0-102.0); Mean Platelet Volume 8.3 fl (9.2-11.8); Platelet Count Result 230 K/mm3 (150-420); Red Blood Count 4.18 M/mm3 (4.20-5.40); Red Cell Distribution Width 13.7 % (11.6-14.4); White Blood Count 4.9 K/mm3 (4.8-10.8)
[2025-01-10 14:05] LABS: Alanine Aminotransferase 33 U/L (14-59); Alkaline Phosphatase 102 U/L (46-116); Anion Gap 8 mmol/L (4-12); Aspartate Amino Transferase 32 U/L (15-37); Bilirubin,Total 0.6 mg/dL (0.00-1.00); Blood Urea Nitrogen 9 mg/dL (7-18); Calcium 8.8 mg/dL (8.5-10.1); Carbon Dioxide 29 mmol/L (21-32); Chloride 95 mmol/L (98-108); Estimated Glomerular Filt Rate > 60; Ferritin 26 ng/mL (8-252); Glucose 92 mg/dL (70-99); Osmolality Calculated 272 mOsm/kg (285-295); Potassium 4.6 mmol/L (3.5-5.1); Sodium 132 mmol/L (136-145); Total Protein 7.3 g/dL (6.4-8.2)
== END 2025-01-10 12:43 | disposition home or self-care (01) ==
LOC: CHSLAB 12:46
PROVIDERS: PCP Internal Medicine; Visit Provider Internal Medicine
DX: I10 Essential (primary) hypertension (principal); D64.9 Anemia, unspecified
CPT/HCPCS: 36415; 80053; 82728; 85027

== ENCOUNTER 2025-09-23 10:21 | Outpatient (CLI) | payer MEDICARE, SELFPAY ==
[2025-09-23 11:00] LABS: Hematocrit 39.4 % (35.0-49.0); Hemoglobin 13.4 g/dL (12.0-15.0); Mean Corpuscular HGB Conc 34.0 g/dL (32-36); Mean Corpuscular Hemoglobin 31.7 pg (27.0-31.0); Mean Corpuscular Volume 93.1 fL (78.0-102.0); Platelet Count Result 229 K/mm3 (150-420); Red Blood Count 4.23 M/mm3 (4.20-5.40); White Blood Count 4.1 K/mm3 (4.8-10.8)
[2025-09-23 11:02] LABS: Add Urine Microscopic? YES; Appearance Urine Clear (Clear); Glucose Urine UA Negative (Negative); Leukocyte Esterase Ur 2+ (Negative); Nitrate Urine Negative (Negative); Specific Grav Ur <= 1.005 (1.010-1.020)
[2025-09-23 11:23] LABS: Alanine Aminotransferase 25 U/L (6-35); Albumin Level 4.6 g/dL (3.5-5.1); Alkaline Phosphatase 94 U/L (38-126); Anion Gap 7 mmol/L (4-12); Aspartate Amino Transferase 43 U/L (14-36); Bilirubin,Total 0.9 mg/dL (0.2-1.3); Blood Urea Nitrogen 5 mg/dL (7-17); Calcium 9.1 mg/dL (8.4-10.2); Carbon Dioxide 25 mmol/L (22-30); Chloride 98 mmol/L (98-107); Cholesterol 221 mg/dL (0-200); Estimated Glomerular Filt Rate > 60; Glucose 97 mg/dL (65-110); Osmolality Calculated 267 mOsm/kg (285-295); Potassium 4.2 mmol/L (3.4-5.0); Sodium 130 mmol/L (137-145); Total Protein 7.2 g/dL (6.3-8.2); Triglycerides 53 mg/dL (<150)
[2025-09-23 11:29] LABS: HDL Direct > 110 mg/dL
[2025-09-23 11:54] LABS: Thyroid Stimulating Hormone 1.490 uIU/mL (0.465-4.680)
[2025-09-23 11:58] LABS: Ferritin 19.20 ng/mL (11.1-264)
[2025-09-24 08:45] LABS: Parathyroid Intact 38.3 pg/mL (14.5-75.2)
== END 2025-09-23 10:22 | disposition home or self-care (01) ==
PROVIDERS: PCP Internal Medicine; Visit Provider Internal Medicine
DX: K91.2 Postsurgical malabsorption, not elsewhere classified (principal); I10 Essential (primary) hypertension
CPT/HCPCS: 36415; 80053; 80061; 81001; 82306; 82728; 83970; 84443; 85027